=== PATIENT | female | born 1990 ===

== ENCOUNTER 2017-02-14 10:14 | Emergency (ER) | payer OTHER ==
[2017-02-14 10:26] VITALS: BMI 23.3
--- NOTE | 2017-02-14 11:54 | C.PDOC ---
History Of Present Illness 27 y/o female presents to ED with complaints of lower abdominal pain and nose bleeding that started today after she started driving. Patient obtained a Salpingectomy on 02/08/17 and discharged with Percocet for pain. Patient reports that she tried driving and bent forward and felt pain. Patient denies back pain , fever, chills or any other complaints at this time. Time Seen by Provider: 02/14/17 11:18 Chief Complaint (Nursing): Abdominal Pain History Per: Patient History/Exam Limitations: no limitations Onset/Duration Of Symptoms: Days Current Symptoms Are (Timing): Still Present Location Of Pain/Discomfort: RLQ, LLQ Radiation Of Pain To:: None Quality Of Discomfort: Sharp Associated Symptoms: denies: Fever, Chills, Nausea, Vomiting Alleviating Factors: None Past Medical History Reviewed: Historical Data, Nursing Documentation, Vital Signs Vital Signs: Last Vital Signs Temp 97.4 F L 02/14/17 14:28 Pulse 91 H 02/14/17 14:28 Resp 16 02/14/17 14:28 BP 102/65 02/14/17 14:28 Pulse Ox 99 02/14/17 14:28 - Medical History PMH: No Chronic Diseases Family History: States: No Known Family Hx - Social History Hx Alcohol Use: Yes Hx Substance Use: Yes - Immunization History Hx Tetanus Toxoid Vaccination: No Hx Influenza Vaccination: No Hx Pneumococcal Vaccination: No Review Of Systems Except As Marked, All Systems Reviewed And Found Negative. Constitutional: Negative for: Fever, Chills ENT: Positive for: Nose Congestion Gastrointestinal: Positive for: Abdominal Pain. Negative for: Nausea, Vomiting , Diarrhea Genitourinary: Negative for: Dysuria Skin: Negative for: Rash Neurological: Negative for: Weakness, Numbness Physical Exam - Physical Exam Appears: Non-toxic, No Acute Distress Skin: Normal Color, Warm, No Rash Head: Atraumatic, Normacephalic Eye(s): bilateral: Normal Inspection Oral Mucosa: Moist Neck: Normal ROM Cardiovascular: Rhythm Regular, No Friction Rub, No Murmur Respiratory: Normal Breath Sounds, No Rales, No Rhonchi, No Wheezing Gastrointestinal/Abdominal: Soft, No Tenderness, No Guarding, No Rebound, Other (2 lower abdomen healing wounds, no deshiscence) Back: Normal Inspection, No CVA Tenderness Extremity: Normal ROM, No Swelling Neurological/Psych: Oriented x3, Normal Speech, Normal Cognition, Normal Motor Gait: Steady ED Course And Treatment O2 Sat by Pulse Oximetry: 100 (RA) Pulse Ox Interpretation: Normal Medical Decision Making Medical Decision Making: Sutures remained intact and no wound dehisence. On re-exam, the patient reports improvement of symptoms. Ambulatory in the ED with steady gait. Lungs are CTA, heart is RRR, abdomen is soft, non-tender and patient is tolerating PO well. Follow up with the medical doctor within 1-2 days, Return if worsened Disposition - Disposition Referrals: [facility] at [facility] [Outside] Disposition: HOME/ ROUTINE Disposition Time: 14:06 Condition: GOOD Additional Instructions: Follow up with the medical doctor within 1-2 days without fail. Return if worsened. 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 - Scribe Statement The provider has reviewed the documentation as recorded by the Vernibamando Mahan All medical record entries made by the Krysta were at my direction and personally dictated by me. I have reviewed the chart and agree that the record accurately reflects my personal performance of the history, physical exam, medical decision making, and the department course for this patient. I have also personally directed, reviewed, and agree with the discharge instructions and disposition.
[2017-02-14] MEDS ORDERED: Oxycodone/Acetaminophen 5/325 mg Tab PO STA (12:09)
[2017-02-14] MEDS ORDERED: Oxycodone/Acetaminophen 5/325 mg Tab ONE (12:34)
[2017-02-14 12:36] LABS: RBC URINE 1 /hpf (0-3); URINE BILIRUBIN NEGATIVE (NEGATIVE); URINE BLOOD 2+ (NEGATIVE); URINE COLOR Yellow (YELLOW); URINE GLUCOSE (UA) NORMAL (Normal); URINE KETONE NEGATIVE (NEGATIVE); URINE LEUKOCYTE ESTERASE NEG Leu/uL (Negative); URINE PROTEIN NEGATIVE (NEGATIVE); URINE UROBILINOGEN NORMAL mg/dL (0.2-1.0); WBC URINE 4 /hpf (0-5)
--- NOTE | 2017-02-14 13:50 | US ---
HISTORY: pelvic pain, s/p salpingectomy, left ectopic surgically removed 02/08/17 COMPARISON: None available. TECHNIQUE: Real-time transabdominal pelvic ultrasound was performed. In addition a transvaginal pelvic ultrasound was necessary to better depict pelvic anatomy FINDINGS: UTERUS: Measures 9.3 x 5.1 x 6.7 cm. Anteverted. ENDOMETRIUM: Measures 4 mm in diameter. No intrauterine gestational sac identified. CERVIX: No cervical abnormality identified. RIGHT OVARY: Measures 3.9 x 1.8 x 2.7 cm. Blood flow is demonstrated. LEFT OVARY: Measures 3.9 x 1.7 x 3.4 cm. Blood flow is demonstrated. FREE FLUID: No significant free fluid noted. OTHER FINDINGS: None. IMPRESSION: No acute findings. See above.
[2017-02-14 14:29] VITALS: BP 102/65; PULSE 91; RESP 16; TEMP 97.4
[2017-02-15 21:58] VITALS: O2SAT 100
== END 2017-02-14 14:29 | disposition home or self-care (01) ==
LOC: C.ER 10:14
DX: G89.18 Other acute postprocedural pain (principal); R04.0 Epistaxis